=== PATIENT | female | born 1965 | race Caucasian/White ===

== ENCOUNTER 2016-06-06 21:03 | Emergency (ER) | payer MEDICAID ==
[~2016-06-06] VITALS: Ht 172.7 cm; Wt 95.3 kg
[2016-06-06 21:05] VITALS: BP 122/79
--- NOTE | 2016-06-06 22:05 | NUR ---
PT TAKEN TO BED 4
--- NOTE | 2016-06-06 22:15 | NUR ---
Dr. Lao evaluating patient at bedside.
--- NOTE | 2016-06-06 22:20 | NUR ---
PATIENT PRESENTS TO ED WITH RT SIDED TOOTHACHE . PT STATES PAIN FEELS LIKE AN INTERMITTENT THROBBING . DENIES N/V/D; SKIN IS PINK/WARM/DRY; AAOX4 WITH EVEN AND STEADY GAIT; LUNGS CLEAR BL; HR EVEN AND REGULAR; PT DENIES ANY FEVER, CP, SOB, OR COUGH AT THIS TIME; PATIENT STATES PAIN OF 5/10 AT THIS TIME; VSS; PATIENT POSITIONED FOR COMFORT; HOB ELEVATED; BEDRAILS UP X2; BED DOWN. ER MD MADE AWARE OF PT STATUS.
[2016-06-06 22:24] VITALS: BP 121/80
--- NOTE | 2016-06-06 22:24 | NUR ---
Patient discharged with v/s stable. Written and verbal after care instructions given and explained. Patient alert, oriented and verbalized understanding of instructions. Ambulatory with steady gait. All questions addressed prior to discharge. ID band removed. Patient advised to follow up with PMD. Rx of PENICILLIN 500MG TID PO AND NAPROSYN given. Patient educated on indication of medication including possible reaction and side effects. Opportunity to ask questions provided and answered.
== END 2016-06-06 22:24 | disposition home or self-care (01) ==
LOC: MED 21:08
DX: K08.89 Other specified disorders of teeth and supporting structures (principal); R03.0 Elevated blood-pressure reading, without diagnosis of hypertension